=== PATIENT | female | born 1995 | race African-American/Black ===

== ENCOUNTER → 2017-11-22 | Outpatient (CLI) | payer OTHER ==
[~2017-11-22] MED LIST: LEVOTAB PO
[2017-11-22 10:12] LABS: LUTEINIZING HORMONE 3.8 mIU/mL
[2017-11-22 16:36] LABS: HEMOGLOBIN A1C 6.7 % (4.3-6.0)
[2017-11-26 15:30] LABS: ESTRADIOL 11 pg/mL; PROLACTIN 25.6 ng/mL (4.8 - 23.3); TOTAL TESTOSTERONE 20 ng/dL (8-60)
== END ==
LOC: CLAB 08:50
DX: N92.6 Irregular menstruation, unspecified (principal)
CPT/HCPCS: 36415; 82626; 82670; 83001; 83002; 83036; 84146; 84270; 84403; 84410; 84703

== ENCOUNTER → 2017-12-20 | Outpatient (CLI) | payer OTHER | LOC: CLAB 07:12 | DX: E22.1 Hyperprolactinemia (principal); N92.6 Irregular menstruation, unspecified | CPT/HCPCS: 36415; 84146 ==

== ENCOUNTER → 2017-12-26 | Outpatient (CLI) | payer OTHER | LOC: CLAB 07:50 | DX: E22.1 Hyperprolactinemia (principal) | CPT/HCPCS: 82533 ==